=== PATIENT | female | born 1940 | race Caucasian/White ===

== ENCOUNTER 2022-11-21 09:38 | Emergency (ER) | payer MEDICARE ==
[2022-11-21] VITALS (9 sets, daily range): BP systolic 157–197; BP diastolic 57–88; PULSE 61–73; RESP 13–19; TEMP 97.9–98.5; O2SAT 97
[~2022-11-21] VITALS: Ht 160 cm; Wt 78.6 kg
[~2022-11-21 09:38] MED LIST: ASPI-1265 PO; FAMO40TA58 PO; METO25TA6 PO; MULT-1085 PO; SIMV-42 PO
--- NOTE | 2022-11-21 10:46 | NUR ---
LAB AT BEDSIDE. PT IS HARD STICK. RN WILL ATTEMPT TO GET IV WITH US MACHINE.
[2022-11-21 11:17] LABS: BASOPHILS # (AUTO) 0.1 X10'3 (0-0.2); EOSINOPHILS # (AUTO) 0.1 X10'3 (0-0.9); HEMOGLOBIN 7.2 g/dl (12.0-16.0); MONOCYTES # (AUTO) 0.3 X10'3 (0-0.9)
[2022-11-21 11:19] LABS: BASOPHILS % (AUTO) 1.1 % (0-1); HEMATOCRIT 23.9 % (35.0-45.0); LYMPHOCYTES % (AUTO) 22.4 % (21-51); MEAN CORPUSCULAR HEMOGLOBIN 19.8 PG (27.0-31.0); MEAN CORPUSCULAR HGB CONC 30.1 g/dL (33.0-36.5); MEAN CORPUSCULAR VOLUME 65.8 FL (78-98); MEAN PLATELET VOLUME 7.1 FL (7.4-10.4); MONOCYTES % (AUTO) 6.6 % (2-12); NEUTROPHILS # (AUTO) 3.1 X10'3 (1.8-7.7); NEUTROPHILS % (AUTO) 66.9 % (42-75); PLATELET COUNT 386 X10'3 (140-440); RED BLOOD COUNT 3.63 X10'6 (4.20-5.60); RED CELL DISTRIBUTION WIDTH 19.3 % (11.5-14.5); WHITE BLOOD COUNT 4.7 X10'3 (4.5-11.0)
[2022-11-21 11:23] LABS: PROTHROMBIN TIME 10.9 SECONDS (9.0-12.0)
[2022-11-21 11:27] LABS: ALANINE AMINOTRANSFERASE 12 U/L (12-78); ALBUMIN/GLOBULIN RATIO 1.1 (1.1-1.5); ALKALINE PHOSPHATASE 63 IU/L (46-116); ANION GAP 10 (8-16); ASPARTATE AMINO TRANSFERASE 28 U/L (10-37); BILIRUBIN,TOTAL 0.5 MG/DL (0.1-1.0); BLOOD UREA NITROGEN 14 MG/DL (7-18); BUN/CREATININE RATIO 18.2 (10.0-20.0); CHLORIDE 98 MMOL/L (99-107); CREATININE 0.77 MG/DL (0.40-0.90); GLUCOSE 98 MG/DL (70-104); POTASSIUM 3.9 MMOL/L (3.5-5.1); SODIUM 134 MMOL/L (135-145); TOTAL CARBON DIOXIDE 26.3 MMOL/L (24-32); TOTAL PROTEIN 7.6 G/DL (6.4-8.2); eCRCL 47 ML/MIN; eGFR 72 ML/MIN
--- NOTE | 2022-11-21 11:36 | NUR ---
THIS RN WAS UNABLE TO OBTAIN IV BY US. ZANE HENDRICKS WILL ATTEMPT AT THIS TIME.
[2022-11-21 11:44] LABS: ANISOCYTOSIS 2+; ELLIPTOCYTES 1+; HYPOCHROMASIA 2+; MICROCYTOSIS 2+; PLATELET ESTIMATE NORMAL
[2022-11-21 11:45] LABS: ROULEAUX 1+; SCHISTOCYTES FEW; TEAR DROP CELLS FEW
--- NOTE | 2022-11-21 12:13 | NUR ---
PT HAD TO USE RESTROOM WHICH DELAYED IV PLACEMENT. ZANE HENDRICKS WILL CONT TO TRY TO GET US IV.
--- NOTE | 2022-11-21 13:09 | NUR ---
IV OBTAINED BY US. CONSENT SIGNED FOR BLOOD. RN WILL PREPARE TO ADMIN.
--- NOTE | 2022-11-21 13:21 | NUR ---
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
--- NOTE | 2022-11-21 13:44 | NUR ---
PER DR GALVAN RN MAY ORD HEART HEALTHY DIET FOR PT. DIET ORD AND MEAL REQ FAXED TO DIETARY.
[2022-11-21] MEDS ORDERED: metoprolol tartrate 50mg tablet PO ONE (14:45)
--- NOTE | 2022-11-21 14:46 | NUR ---
RN NOTIFIED DR BROOKE THAT PT SYS BP 197 AND PT TOOK HER DOSE OF METOPROLOL 25MG THIS AM. PER DR BROOKE HE WILL PLACE ORDS.
[2022-11-21] MEDS ORDERED: metoprolol tartrate 25mg tablet PO ONE (14:50)
== END 2022-11-21 19:52 | disposition home or self-care (01) ==
LOC: ER 09:38
DX: D64.9 Anemia, unspecified (principal); Z88.0 Allergy status to penicillin; Z88.5 Allergy status to narcotic agent; Z88.2 Allergy status to sulfonamides; Z88.8 Allergy status to other drugs, medicaments and biological substances; Z79.82 Long term (current) use of aspirin; Z79.899 Other long term (current) drug therapy
CPT/HCPCS: 36415; 36430; 80053; 85008; 85025; 85610; 86885; 86900; 86901; 86920; 99285; J7030; P9016

== ENCOUNTER 2023-02-02 10:53 | Outpatient (CLI) | payer MEDICARE | END 2023-02-02 23:59 | disposition home or self-care (01) | LOC: RAD 10:53 | PROVIDERS: ATTEND Registered Nurse | DX: K76.0 Fatty (change of) liver, not elsewhere classified (principal); R10.10 Upper abdominal pain, unspecified | CPT/HCPCS: 76700 ==

== ENCOUNTER 2023-05-28 14:46 | Emergency (ER) | payer MEDICARE ==
[~2023-05-28] VITALS: Ht 160 cm; Wt 78.1 kg
[2023-05-28 16:31] LABS: ABSOLUTE RETICS # 45500 /CUMM (23000-93000); BASOPHILS % (AUTO) 0.7 % (0-1); EOSINOPHILS # (AUTO) 0.1 X10'3 (0-0.9); EOSINOPHILS % (AUTO) 1.9 % (0-6); HEMATOCRIT 25.2 % (35.0-45.0); HEMOGLOBIN 7.8 g/dl (12.0-16.0); LYMPHOCYTES # (AUTO) 1.1 X10'3 (1.1-4.8); LYMPHOCYTES % (AUTO) 20.1 % (21-51); MEAN CORPUSCULAR HEMOGLOBIN 22.8 PG (27.0-31.0); MEAN CORPUSCULAR VOLUME 73.7 FL (78-98); MEAN PLATELET VOLUME 7.5 FL (7.4-10.4); MONOCYTES # (AUTO) 0.3 X10'3 (0-0.9); MONOCYTES % (AUTO) 4.7 % (2-12); NEUTROPHILS # (AUTO) 3.8 X10'3 (1.8-7.7); NEUTROPHILS % (AUTO) 72.6 % (42-75); PLATELET COUNT 322 X10'3 (140-440); RED BLOOD COUNT 3.41 X10'6 (4.20-5.60); RED CELL DISTRIBUTION WIDTH 16.4 % (11.5-14.5); RETICULOCYTE % (AUTO) 1.3 % (0.5-1.5); WHITE BLOOD COUNT 5.3 X10'3 (4.5-11.0)
[2023-05-28 16:32] LABS: ALANINE AMINOTRANSFERASE 20 U/L (12-78); ALBUMIN 3.7 G/DL (3.4-5.0); ALKALINE PHOSPHATASE 59 IU/L (46-116); ANION GAP 6 (8-16); BILIRUBIN,TOTAL 0.3 MG/DL (0.1-1.0); BLOOD UREA NITROGEN 21 MG/DL (7-18); BUN/CREATININE RATIO 23.1 (10.0-20.0); CALCIUM 8.9 MG/DL (8.5-10.1); CHLORIDE 101 MMOL/L (99-107); CREATININE 0.91 MG/DL (0.40-0.90); GLUCOSE 105 MG/DL (70-104); POTASSIUM 4.1 MMOL/L (3.5-5.1); SODIUM 137 MMOL/L (135-145); TOTAL PROTEIN 7.3 G/DL (6.4-8.2); eCRCL 39 ML/MIN; eGFR 59 ML/MIN
[2023-05-28 16:38] LABS: PROTHROMBIN TIME 10.9 SECONDS (9.0-12.0)
[2023-05-28 16:46] LABS: ASPARTATE AMINO TRANSFERASE 21 U/L (10-37)
[2023-05-28 16:55] LABS: APTT 20 SECONDS (22-32)
[2023-05-28 19:40] VITALS: BP 162/71; PULSE 75; RESP 16; TEMP 97.9
[2023-05-28 19:57] VITALS: BP 145/55; PULSE 64; RESP 16; TEMP 98.3
[2023-05-28 20:57] VITALS: BP 161/63; PULSE 72; RESP 16; TEMP 98.3
[2023-05-28 21:57] VITALS: BP 148/46; PULSE 75; RESP 18; TEMP 98.3
[2023-05-29 00:25] VITALS: BP 144/72; PULSE 70; RESP 16; TEMP 98.3; O2SAT 98
== END 2023-05-29 00:27 | disposition home or self-care (01) ==
LOC: ER 14:47
DX: D64.9 Anemia, unspecified (principal); R53.83 Other fatigue; R68.83 Chills (without fever); Z88.0 Allergy status to penicillin; Z88.5 Allergy status to narcotic agent; Z88.2 Allergy status to sulfonamides; Z79.82 Long term (current) use of aspirin; Z79.899 Other long term (current) drug therapy
CPT/HCPCS: 36415; 36430; 80053; 85025; 85045; 85610; 85730; 86885; 86900; 86901; 86920; 99285; J7050; P9016

== ENCOUNTER 2023-11-09 11:04 | Day surgery (SDC) | payer MEDICARE ==
[~2023-11-09] VITALS: Ht 160 cm; Wt 78.6 kg
[~2023-11-09 11:04] MED LIST changes: -ASPI-1265 PO; -FAMO40TA58 PO
[2023-11-09 11:52] VITALS: BP 128/71; PULSE 73; RESP 14; TEMP 97.9
[2023-11-09] MEDS ORDERED: MIDAZolam 1 MG/ML 5ML VIAL ONE (13:15)
[2023-11-09] MEDS ORDERED: fentaNYL/PF 50MCG/1 ML 2ML syringe ONE (13:15)
[2023-11-09] MEDS ORDERED: diphenhydrAMINE 50 mg/ml inj ONE (13:15)
[2023-11-09] MEDS ORDERED: LIDOcaine 2% Viscous 15ml cup ONE (13:15)
[2023-11-09 13:41] VITALS: BP 130/64; PULSE 70; RESP 14; O2SAT 93
[2023-11-09 13:52] VITALS: BP 137/66; PULSE 71; RESP 16; O2SAT 92
[2023-11-09 14:02] VITALS: BP 136/64; PULSE 72; RESP 14; O2SAT 93
[2023-11-09 14:12] VITALS: BP 153/67; PULSE 72; RESP 16; O2SAT 94
[2023-11-09 14:22] VITALS: BP 160/69; PULSE 69; RESP 16; O2SAT 97
== END 2023-11-09 14:32 | disposition home or self-care (01) ==
LOC: GI LAB 11:04 → MERGE 12:00 → GI LAB 14:32
PROVIDERS: ATTEND Internal Medicine Gastroenterology
DX: D50.0 Iron deficiency anemia secondary to blood loss (chronic) (principal); K44.9 Diaphragmatic hernia without obstruction or gangrene; K29.50 Unspecified chronic gastritis without bleeding; K21.9 Gastro-esophageal reflux disease without esophagitis
CPT/HCPCS: 43239; A4620; J1200; J2250; J3010; J7030; Z7512; 88305; 99152

== ENCOUNTER 2024-04-04 10:32 | Outpatient (CLI) | payer MEDICARE ==
[~2024-04-04 10:32] MED LIST changes: +HYDR-3973 PO
== END 2024-04-04 23:59 | disposition home or self-care (01) ==
LOC: RAD 10:32
PROVIDERS: ATTEND Registered Nurse
DX: S09.90XD Unspecified injury of head, subsequent encounter (principal); X58.XXXD Exposure to other specified factors, subsequent encounter; G31.89 Other specified degenerative diseases of nervous system
CPT/HCPCS: 70450